=== PATIENT | male | born 1940 | race Caucasian/White ===

== ENCOUNTER 2019-12-25 12:38 | Outpatient (CLI) | payer MEDICARE, OTHER | END 2019-12-25 23:59 | disposition home or self-care (01) | LOC: RAD 12:38 | PROVIDERS: ATTEND Psychiatry & Neurology Neurology | DX: R13.12 Dysphagia, oropharyngeal phase (principal); R47.1 Dysarthria and anarthria; R49.0 Dysphonia; G20 Parkinson's disease | CPT/HCPCS: 74230 ==